=== PATIENT | male | born 1985 | race Hispanic/Latino ===

== ENCOUNTER → 2019-04-23 | Outpatient (CLI) | payer OTHER ==
--- NOTE | 2019-04-24 08:28 | RAD ---
EXAM DESCRIPTION: Abdomen Series CLINICAL HISTORY: 33 years Male, GEN ABD PAIN COMPARISON: None. TECHNIQUE: 3 view radiographs of the chest and abdomen. IMPRESSION: Normal heart size. No lobar consolidation. No pleural effusion or pneumothorax. Nondilated bowel gas pattern. Mild colonic stool in the proximal colon. No pathologic calcification overlying the renal shadows or expected course of the ureters. Lumbar spondylosis with slight dextrocurvature concern at L3. Electronically signed by: Kain Woodward MD 04/24/2019 8:26 AM [facility]
== END ==
LOC: LAB.O 12:12
PROVIDERS: ATTEND Registered Nurse General Practice
DX: R10.84 Generalized abdominal pain (principal); M47.896 Other spondylosis, lumbar region